=== PATIENT | male | born 1980 | race Caucasian/White ===

== ENCOUNTER 2018-03-07 00:50 | Emergency (ER) | payer SELFPAY | END 2018-03-07 01:00 | disposition left against medical advice (07) | LOC: E/R 00:50 | DX: Z53.21 Procedure and treatment not carried out due to patient leaving prior to being seen by health care provider (principal) ==

== ENCOUNTER 2018-03-07 01:58 | Emergency (ER) | payer SELFPAY, OTHER ==
[2018-03-07] MEDS ORDERED: ASPIRIN 325 MG TAB PO (02:04)
== END 2018-03-07 02:50 | disposition left against medical advice (07) ==
LOC: E/R 02:50
DX: F12.10 Cannabis abuse, uncomplicated (principal)
CPT/HCPCS: 99282